=== PATIENT | female | born 1960 | race Caucasian/White ===

== ENCOUNTER 2022-07-07 10:29 | Observation (INO) | payer BC, OTHER ==
[2022-07-07] MEDS ORDERED: SODIUM CHLORIDE 0.9% 500 ML 500 ML IV STA (10:34)
--- NOTE | 2022-07-07 10:40 | ED ---
General Adult HPI - General Chief complaint: Chest Pain Stated complaint: Cardiac Time Seen by Provider: 07/07/22 10:29 Source: patient, EMS, RN notes reviewed, old records reviewed Mode of arrival: EMS Limitations: no limitations - History of Present Illness Initial comments: This is a 63-year-old female who is brought in by EMS. EMS stated the patient was in SVT they tried 6 of adenosine and then 12 of adenosine and were unable to convert the patient. Patient was then cardioverted and the patient converted to a sinus rhythm. Patient states she has no cardiac history. Patient states she takes no medications for any reason. Patient denies any recent fever chills. Patient states while at work he was in a dispute with another coworker and she wonders if that set her off. Patient denies any drug use. Patient denies alcohol use. Patient denies any thyroid issues. Patient states when the symptoms occurred at about 9:30 she was short of breath and feeling lightheaded. EMS stated her blood pressure was low so the emergency cardioverted here because she was not responding at all to adenosine. Patient states this has never happened to her before. - Related Data Allergies Allergy/AdvReac Type Severity Reaction Status Date / Time No Known Allergies Allergy Verified 07/07/22 10:36 Review of Systems ROS Statement: Those systems with pertinent positive or pertinent negative responses have been documented in the HPI. ROS Other: All systems not noted in ROS Statement are negative. Past Medical History Past Medical History: No Reported History History of Any Multi-Drug Resistant Organisms: None Reported Past Surgical History: No Surgical Hx Reported Past Psychological History: No Psychological Hx Reported Smoking Status: Never smoker Past Alcohol Use History: None Reported Past Drug Use History: None Reported General Exam - General Exam Comments Initial Comments: GENERAL: Patient is well-developed and well-nourished. Patient is nontoxic and well-hydr ated and is in mild distress. ENT: Neck is soft and supple. No significant lymphadenopathy is noted. Oropharynx is clear. Moist mucous membranes. Neck has full range of motion without eliciting any pain. There is no thyroid enlargement and no masses were felt. EYES: The sclera were anicteric and conjunctiva were pink and moist. Extraocular movements were intact and pupils were equal round and reactive to light. Eyelids were unremarkable. PULMONARY: Unlabored respirations. Good breath sounds bilaterally. No audible rales rhonchi or wheezing was noted. CARDIOVASCULAR: There is a regular rate and rhythm without any murmurs gallops or rubs. ABDOMEN: Soft and nontender with normal bowel sounds. SKIN: Skin is clear with no lesions or rashes and otherwise unremarkable. NEUROLOGIC: Patient is alert and oriented x3. Cranial nerves II through XII are grossly intact. Motor and sensory are also intact. Normal speech, volume and content. Symmetrical smile. MUSCULOSKELETAL: Normal extremities with adequate strength and full range of motion. No lower extremity swelling or edema. No calf tenderness. LYMPHATICS: No significant lymphadenopathy is noted PSYCHIATRIC: Normal psychiatric evaluation. Limitations: no limitations Course Vital Signs 07/07/22 07/07/22 10:30 11:11 Temperature 97.6 F Pulse Rate 90 92 Respiratory 18 18 Rate Blood Pressure 112/81 112/78 O2 Sat by Pulse 98 99 Oximetry Medical Decision Making - Medical Decision Making EMS states that [facility] bypass the patient even though was a priority 1 EKG shows sinus rhythm at 90 bpm [place] interval is 171 QRS is 103 QT interval 388 QTC is 435. Patient's EKG shows Q waves in II, III, and F aVF and slight ST segment depression in V3 and V4. Patient denies any chest pain I spoke with Dr. Trinidad about the patient he came down and saw the patient and reviewed the rhythm strip prior to the cardioversion he thought the patient might be in atrial flutter at this time. No anticoagulation is indicated at this time I spoke with sounds physician's they agreed to admit the patient admitted the patient wrote admitting orders - Lab Data Result diagrams: 07/07/22 10:36 07/07/22 10:36 Lab Results 07/07/22 07/07/22 07/07/22 Range/Units 10:36 10:36 10:36 WBC 6.3 (3.8-10.6) k/uL RBC 4.63 (3.80-5.40) m/uL Hgb 13.3 (11.4-16.0) gm/dL Hct 41.5 (34.0-46.0) % MCV 89.5 (80.0-100.0) fL MCH 28.7 (25.0-35.0) pg MCHC 32.1 (31.0-37.0) g/dL RDW 12.5 (11.5-15.5) % Plt Count 215 (150-450) k/uL MPV 8.2 Neutrophils % 78 % Lymphocytes % 14 % Monocytes % 4 % Eosinophils % 1 % Basophils % 2 % Neutrophils # 4.9 (1.3-7.7) k/uL Lymphocytes # 0.9 L (1.0-4.8) k/uL Monocytes # 0.3 (0-1.0) k/uL Eosinophils # 0.1 (0-0.7) k/uL Basophils # 0.1 (0-0.2) k/uL PT 10.6 (9.0-12.0) sec INR 1.0 (<1.2) APTT 24.4 (22.0-30.0) sec Sodium 138 (137-145) mmol/L Potassium 3.8 (3.5-5.1) mmol/L Chloride 104 (98-107) mmol/L Carbon Dioxide 22 (22-30) mmol/L Anion Gap 12 mmol/L BUN 18 H (7-17) mg/dL Creatinine 0.99 (0.52-1.04) mg/dL Est GFR (CKD-EPI)AfAm 72 (>60 ml/min/1.73 sqM) Est GFR (CKD-EPI)NonAf 63 (>60 ml/min/1.73 sqM) Glucose 140 H (74-99) mg/dL Calcium 9.3 (8.4-10.2) mg/dL Magnesium 1.8 (1.6-2.3) mg/dL Total Bilirubin 0.7 (0.2-1.3) mg/dL AST 47 H (14-36) U/L ALT 36 H (4-34) U/L Alkaline Phosphatase 96 (38-126) U/L Troponin I (0.000-0.034) ng/mL Total Protein 6.3 (6.3-8.2) g/dL Albumin 4.1 (3.5-5.0) g/dL TSH 2.750 (0.465-4.680) mIU/L 07/07/22 Range/Units 10:36 WBC (3.8-10.6) k/uL RBC (3.80-5.40) m/uL Hgb (11.4-16.0) gm/dL Hct (34.0-46.0) % MCV (80.0-100.0) fL MCH (25.0-35.0) pg MCHC (31.0-37.0) g/dL RDW (11.5-15.5) % Plt Count (150-450) k/uL MPV Neutrophils % % Lymphocytes % % Monocytes % % Eosinophils % % Basophils % % Neutrophils # (1.3-7.7) k/uL Lymphocytes # (1.0-4.8) k/uL Monocytes # (0-1.0) k/uL Eosinophils # (0-0.7) k/uL Basophils # (0-0.2) k/uL PT (9.0-12.0) sec INR (<1.2) APTT (22.0-30.0) sec Sodium (137-145) mmol/L Potassium (3.5-5.1) mmol/L Chloride (98-107) mmol/L Carbon Dioxide (22-30) mmol/L Anion Gap mmol/L BUN (7-17) mg/dL Creatinine (0.52-1.04) mg/dL Est GFR (CKD-EPI)AfAm (>60 ml/min/1.73 sqM) Est GFR (CKD-EPI)NonAf (>60 ml/min/1.73 sqM) Glucose (74-99) mg/dL Calcium (8.4-10.2) mg/dL Magnesium (1.6-2.3) mg/dL Total Bilirubin (0.2-1.3) mg/dL AST (14-36) U/L ALT (4-34) U/L Alkaline Phosphatase (38-126) U/L Troponin I 0.014 (0.000-0.034) ng/mL Total Protein (6.3-8.2) g/dL Albumin (3.5-5.0) g/dL TSH (0.465-4.680) mIU/L Disposition Clinical Impression: Atrial flutter with rapid ventricular response Disposition: ADMITTED IP TO THIS HOSP Referrals: None,Stated [Primary Care Provider] - 1-2 days Time of Disposition: 12:03
[2022-07-07 10:45] LABS: Basophils # (A) 0.1 k/uL (0-0.2); Basophils % (A) 2 %; Eosinophils # (A) 0.1 k/uL (0-0.7); Eosinophils % (A) 1 %; HCT 41.5 % (34.0-46.0); HGB 13.3 gm/dL (11.4-16.0); Lymphocytes # (A) 0.9 k/uL (1.0-4.8); Lymphocytes % (A) 14 %; MCH 28.7 pg (25.0-35.0); MCHC 32.1 g/dL (31.0-37.0); MCV 89.5 fL (80.0-100.0); Mean Platelet Volume 8.2; Monocytes # (A) 0.3 k/uL (0-1.0); Monocytes % (A) 4 %; Neutrophils # (A) 4.9 k/uL (1.3-7.7); Neutrophils % (A) 78 %; Platelet Count 215 k/uL (150-450); RBC 4.63 m/uL (3.80-5.40); RDW 12.5 % (11.5-15.5); WBC 6.3 k/uL (3.8-10.6)
[2022-07-07 10:53] LABS: Partial Thromboplastin Time 24.4 sec (22.0-30.0); Prothrombin Time 10.6 sec (9.0-12.0)
[2022-07-07 11:18] LABS: Albumin 4.1 g/dL (3.5-5.0); Calcium 9.3 mg/dL (8.4-10.2); Magnesium 1.8 mg/dL (1.6-2.3); Potassium 3.8 mmol/L (3.5-5.1); Total Bilirubin 0.7 mg/dL (0.2-1.3); Total Protein 6.3 g/dL (6.3-8.2)
--- NOTE | 2022-07-07 11:25 | XR ---
EXAMINATION TYPE: XR chest 2V DATE OF EXAM: 07/07/2022 11:11 AM COMPARISON: None TECHNIQUE: XR chest 2V Frontal and lateral views of the chest. CLINICAL INDICATION:Female, 61 years old with history of dysrhythmia; FINDINGS: Lungs/Pleura: There is no evidence of pleural effusion, focal consolidation, or pneumothorax. Pulmonary vascularity: Unremarkable. Heart/mediastinum: Cardiomediastinal silhouette is enlarged and stable. Musculoskeletal: Degenerative changes of the shoulder joints. IMPRESSION: No acute cardiopulmonary disease/process.
[2022-07-07] MEDS ORDERED: NITROGLYCERIN SL TABS 0.4 MG TAB SUBLINGUAL PRN (12:04)
--- NOTE | 2022-07-07 13:03 | P.CRDCN ---
History of Present Illness Consult date: 07/07/22 History of present illness: HISTORY OF PRESENT ILLNESS: This is a 61 year old female who denies any significant past medical history. 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 We have been asked to see the patient in consultation for aflutter with RVR. Patient examined at the bedside. Patient reports she has been under a lot of stress at work lately. She reports she went into work today and began to feel nauseous and dizzy. She reports having palpitations. EMS was called and the patient was found to be tachycardic in which they thought was SVT. Patient received 6 mg of adenosine followed by 12 mg of adenosine. Per EMS, the patient became hypotensive so she was cardioverted in route to the hospital. Bedside telemetry reveals sinus mechanism. The patient denies any chest pain or pressure. She denies shortness of breath. She states that she has felt dizzy and has had palpitations in the past when she feels nauseous or is throwing up. She reports that she is a nonsmoker. She reports drinking coffee just in the morning. She reports occasional alcohol use. She denies any drug use including marijuana. * Telemetry tracings from EMS reveal atrial tachycardia versus 2:1 atrial flutter * Chest xray negative for acute process * Laboratory data: WBC 6.3. Hemoglobin 13.3. Platelet count 215. Sodium 138. Potassium 3.8. BUN 18. Creatinine 0.99. AST 47. ALT 36. Troponin negative 1. TSH 2.750. * Current home cardiac medications include none REVIEW OF SYSTEMS: At the time of my exam: CONSTITUTIONAL: Denies fever or chills. HEENT: Denies blurred vision, vision changes, or eye pain. Denies hemoptysis CARDIOVASCULAR: Denies chest pain. Denies orthopnea. Denies PND. Denies palpita tions RESPIRATORY: Denies shortness of breath. GASTROINTESTINAL: Denies abdominal pain. Denies nausea or vomiting. HEMATOLOGIC: Denies bleeding disorders. GENITOURINARY: Denies any blood in urine. SKIN: Denies pruitis. Denies rash. PHYSICAL EXAM: VITAL SIGNS: Reviewed. GENERAL: Well-developed in no acute distress. HEENT: Head is normocephalic. Pupils are equal, round. Sclerae anicteric. Mucous membranes of the mouth are moist. Neck supple. No JVD or thyromegaly LUNGS: Respirations even and unlabored. Lungs essentially clear to auscultation bilaterally. HEART: Regular rate and rhythm. S1 and S2 heard. ABDOMEN: Soft. Nondistended. Nontender. EXTREMITIES: Normal range of motion. No clubbing or cyanosis. Peripheral pulses intact. No lower extremity edema NEUROLOGIC: Awake and alert. Oriented x 3. ASSESSMENT: Symptoms of dizziness, lightheadedness, nausea, and palpitations Atrial tachycardia versus 2:1 atrial flutter PLAN: Obtain 2-D echo to assess cardiac structure and function TSH checked and within normal limits Continue telemetry monitoring No anticoagulation needed at this time No beta jefry therapy at this time per Dr. Trinidad Further recommendations pending patient's course Nurse practitioner note has been reviewed by physician. Signing provider agrees with the documented findings, assessment, and plan of care. Past Medical History Past Medical History: No Reported History History of Any Multi-Drug Resistant Organisms: None Reported Past Surgical History: No Surgical Hx Reported Past Psychological History: No Psychological Hx Reported Smoking Status: Never smoker Past Alcohol Use History: None Reported Past Drug Use History: None Reported Medications and Allergies Home Medications Medication Instructions Recorded Confirmed Type No Known Home Medications 07/07/22 07/07/22 History Allergies Allergy/AdvReac Type Severity Reaction Status Date / Time No Known Allergies Allergy Verified 07/07/22 12:37 Physical Exam Vitals: Vital Signs Temp Pulse Resp BP Pulse Ox 07/07/22 11:11 92 18 112/78 99 07/07/22 10:30 97.6 F 90 18 112/81 98 Intake and Output 07/06/22 07/07/22 07/07/22 22:59 06:59 14:59 Other: Weight 54.431 kg Results 07/07/22 10:36 07/07/22 10:36 Cardiac Enzymes 07/07/22 07/07/22 Range/Units 10:36 10:36 AST 47 H (14-36) U/L Troponin I 0.014 (0.000-0.034) ng/mL Coagulation 07/07/22 Range/Units 10:36 PT 10.6 (9.0-12.0) sec APTT 24.4 (22.0-30.0) sec CBC 07/07/22 Range/Units 10:36 WBC 6.3 (3.8-10.6) k/uL RBC 4.63 (3.80-5.40) m/uL Hgb 13.3 (11.4-16.0) gm/dL Hct 41.5 (34.0-46.0) % Plt Count 215 (150-450) k/uL Comprehensive Metabolic Panel 07/07/22 Range/Units 10:36 Sodium 138 (137-145) mmol/L Potassium 3.8 (3.5-5.1) mmol/L Chloride 104 (98-107) mmol/L Carbon Dioxide 22 (22-30) mmol/L BUN 18 H (7-17) mg/dL Creatinine 0.99 (0.52-1.04) mg/dL Glucose 140 H (74-99) mg/dL Calcium 9.3 (8.4-10.2) mg/dL AST 47 H (14-36) U/L ALT 36 H (4-34) U/L Alkaline Phosphatase 96 (38-126) U/L Total Protein 6.3 (6.3-8.2) g/dL Albumin 4.1 (3.5-5.0) g/dL Current Medications Generic Name Dose Route Start Last Admin Trade Name Freq PRN Reason Stop Dose Admin Nitroglycerin 0.4 mg 07/07/22 12:04 Nitroglycerin Sl Tabs 0.4 Mg Tab SUBLINGUAL Q5M PRN Chest Pain Intake and Output 07/06/22 07/07/22 07/07/22 22:59 06:59 14:59 Other: Weight 54.431 kg Patient Weight 07/08/22 06:59 Weight 54.431 kg 07/07/22 10:36 07/07/22 10:36
[2022-07-07 13:28] LABS: Amphetamine Screen,Urine Not Detected (NotDetected); Barbiturate Screen,Urine Not Detected (NotDetected); Benzodiazepines Screen,Urine Not Detected (NotDetected); Cocaine Screen,Urine Not Detected (NotDetected); Methadone Screen, Urine Not Detected (NotDetected); Opiate Screen,Urine Not Detected (NotDetected); Oxycodone Screen, Urine Not Detected (NotDetected); Phencyclidine Screen,Urine Not Detected (NotDetected); Tricyclic Antidepressant,Urine Not Detected (NotDetected); Urn Cannabinoid Scrn Not Detected (NotDetected)
--- NOTE | 2022-07-07 15:41 | P.HPIM ---
History of Present Illness H&P Date: 07/07/22 Chief Complaint: Presyncope Patient is a 61-year-old female with no past medical history who was brought in by EMS for SVT. Patient was at work today. She stated that when she went into work she was stressed out because of another coworker who was being rude to her. She states that today at work she felt as if she is going to pass out and was having some chest discomfort as well as numbness and tingling in her fingers. So her boss called 911. When EMS arrived they found her to be in SVT and also hypotensive. Patient received adenosine twice which did not convert her. She was then cardioverted and was then in normal sinus rhythm. She has been in norm al sinus rhythm since then. Patient currently denying any symptoms. Review of Systems 10 ROS reviewed and are negative except as noted in HPI Past Medical History Past Medical History: No Reported History History of Any Multi-Drug Resistant Organisms: None Reported Past Surgical History: No Surgical Hx Reported Past Psychological History: No Psychological Hx Reported Smoking Status: Never smoker Past Alcohol Use History: None Reported Past Drug Use History: None Reported Medications and Allergies Home Medications Medication Instructions Recorded Confirmed Type No Known Home Medications 07/07/22 07/07/22 History Allergies Allergy/AdvReac Type Severity Reaction Status Date / Time No Known Allergies Allergy Verified 07/07/22 12:37 Physical Exam Osteopathic Statement: *. No significant issues noted on an osteopathic structural exam other than those noted in the History and Physical/Consult. Vitals: Vital Signs Temp Pulse Resp BP Pulse Ox 07/07/22 13:00 80 18 149/91 96 07/07/22 11:11 92 18 112/78 99 07/07/22 10:30 97.6 F 90 18 112/81 98 Intake and Output 07/07/22 07/07/22 07/07/22 06:59 14:59 22:59 Other: Weight 54.431 kg General: [Alert and oriented, well nourished, no acute distress]. Eye: [PERRL, EOMI, normal conjunctiva]. HENT: [Normocephalic, clear tympanic membranes, normal hearing, moist oral mucosa, no scleral icterus, no sinus tenderness]. Neck: [Supple, non-tender, no carotid bruits, no JVD, no lymphadenopathy]. Lungs: [Clear to auscultation and percussion, non-labored respiration]. Heart: [Normal rate, regular rhythm, no murmur, gallop or edema]. Abdomen: [Soft, non-tender, non-distended, normal bowel sounds, no masses]. Musculoskeletal: [Normal range of motion and strength, no tenderness or swelling]. Skin: [Skin is warm, dry and pink, no rashes or lesions]. Neurologic: [Awake, alert, and oriented X3, CN II-XII intact]. Psychiatric: [Cooperative, appropriate mood and affect]. Results CBC & Chem 7: 07/07/22 10:36 07/07/22 10:36 Labs: Abnormal Lab Results - Last 24 Hours (Table) 07/07/22 07/07/22 Range/Units 10:36 10:36 Lymphocytes # 0.9 L (1.0-4.8) k/uL BUN 18 H (7-17) mg/dL Glucose 140 H (74-99) mg/dL AST 47 H (14-36) U/L ALT 36 H (4-34) U/L Assessment and Plan Assessment: SVT Presyncope secondary to the above Check 2-D echocardiogram TSH within normal limits Telemetry Cardiology consult CODE STATUS:full code DVT prophylaxis: mechanical Discussed with: Patient, ER, rn Anticipated length of stay < than [address]: home A total of 50 minutes was spent on the care of this complex patient more than 50% of the time was spent in counseling and care coordination.
--- NOTE | 2022-07-07 17:36 | CA ---
Transthoracic Echo Report Name: Pearl Pa Age: 61 Gender: F : 1960 Exam Date: 07/07/2022 13:54 Exam Location: [facility] Ht (in): 60 Wt (lb): 224 Ordering Physician: German Davey MD Attending/Referring Phys: Restrike Hammer Operator Mihaela Morillo, ANDER Procedure CPT: Indications: Chest Pain Cardiac Hx: Technical Quality: Good Contrast 1: Total Dose (mL): Contrast 2: Total Dose (mL): MEASUREMENTS (Male / Female) Normal Values 2D ECHO LV Diastolic Diameter PLAX 4.3 cm 4.2 - 5.9 / 3.9 - 5.3 cm LV Systolic Diameter PLAX 3.2 cm IVS Diastolic Thickness 0.8 cm 0.6 - 1.0 / 0.6 - 0.9 cm LVPW Diastolic Thickness 1.1 cm 0.6 - 1.0 / 0.6 - 0.9 cm LV Relative Wall Thickness 0.4 LA Volume 49.7 cm??? 18 - 58 / 22 - 52 cm??? M-MODE Aortic Root Diameter MM 2.8 cm LA Systolic Diameter MM 3.2 cm LA Ao Ratio MM 1.1 MV E Point Septal Separation 0.1 cm DOPPLER MV Area PHT 4.1 cm??? Mitral E Point Velocity 48.6 cm/s Mitral A Point Velocity 44.9 cm/s Mitral E to A Ratio 1.1 MV Deceleration Time 184.4 ms MV E' Velocity 5.7 cm/s Mitral E to MV E' Ratio 8.5 TR Peak Velocity 249.2 cm/s TR Peak Gradient 24.9 mmHg Right Ventricular Systolic Press 28.8 mmHg FINDINGS Left Ventricle Left ventricular ejection fraction is estimated at 50-55%. Right Ventricle Normal right ventricular size and function. Right ventricular systolic pressure within normal limits. Right Atrium Normal right atrial size. Left Atrium Normal left atrial size. Mitral Valve Mitral valve thickened. Mild mitral regurgitation. Aortic Valve Trileaflet aortic valve. Tricuspid Valve Structurally normal tricuspid valve. Pulmonic Valve Structurally normal pulmonic valve. Pericardium Normal pericardium. Aorta Normal size aortic root and proximal ascending aorta. CONCLUSIONS Normal LV systolic function Mild mitral regurgitation Prominent Chiari network in the right atrium Previewed by: Dr. Stiven Mckoy MD (Electronically Signed) Final Date: 07 July 2022 17:35
[2022-07-08 08:16] VITALS: RESP 16
[2022-07-08] MEDS ORDERED: ASPIRIN 325 MG TAB PO SCH (09:00)
[2022-07-08 11:11] LABS: HDL Cholesterol 60.3 mg/dL (40.00-60.00); Triglycerides 49.6 mg/dL (0.00-149.00)
[2022-07-08 11:25] LABS: Chol/HDL Ratio 2.32 Ratio; LDL Cholesterol,Direct Reflex 72.3 mg/dL (0.00-129.00)
[2022-07-08 11:58] VITALS: BP 112/72; PULSE 86; TEMP 97.6
[2022-07-08] MEDS ORDERED: DILTIAZEM CD 120 MG CAP.ER.24H PO SCH (12:30)
--- NOTE | 2022-07-08 12:59 | P.PN ---
Subjective Progress Note Date: 07/08/22 HISTORY OF PRESENT ILLNESS: This is a 61 year old female who denies any significant past medical history. 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 We have been asked to see the p reinaldo in consultation for aflutter with RVR. Patient examined at the bedside. Patient reports she has been under a lot of stress at work lately. She reports she went into work today and began to feel nauseous and dizzy. She reports having palpitations. EMS was called and the patient was found to be tachycardic in which they thought was SVT. Patient received 6 mg of adenosine followed by 12 mg of adenosine. Per EMS, the patient became hypotensive so she was cardioverted in route to the hospital. Bedside telemetry reveals sinus mechanism. The patient denies any chest pain or pressure. She denies shortness of breath. She states that she has felt dizzy and has had palpitations in the past when she feels nauseous or is throwing up. She reports that she is a nonsmoker. She reports drinking coffee just in the morning. She reports occasional alcohol use. She denies any drug use including marijuana. * Telemetry tracings from EMS reveal atrial tachycardia versus 2:1 atrial flutter * Chest xray negative for acute process * Laboratory data: WBC 6.3. Hemoglobin 13.3. Platelet count 215. Sodium 138. Potassium 3.8. BUN 18. Creatinine 0.99. AST 47. ALT 36. Troponin negative 1. TSH 2.750. * Current home cardiac medications include none 07/08/2022 Patient examined this morning at the bedside. Patient denies chest pain or pressure. She denies shortness of breath. Telemetry reveals sinus mechanism. Patient's second troponin came back elevated at 0.327. Echocardiogram completed revealing ejection fraction 50-55%. Patient underwent stress echocardiogram today which was negative for ischemia. PHYSICAL EXAM: VITAL SIGNS: Reviewed. GENERAL: Well-developed in no acute distress. HEENT: Head is normocephalic. Pupils are equal, round. Sclerae anicteric. Mucous membranes of the mouth are moist. Neck supple. No JVD or thyromegaly LUNGS: Respirations even and unlabored. Lungs essentially clear to auscultation bilaterally. HEART: Regular rate and rhythm. S1 and S2 heard. ABDOMEN: Soft. Nondistended. Nontender. EXTREMITIES: Normal range of motion. No clubbing or cyanosis. Peripheral pulses intact. No lower extremity edema NEUROLOGIC: Awake and alert. Oriented x 3. ASSESSMENT: Symptoms of dizziness, lightheadedness, nausea, and palpitations Atrial tachycardia versus 2:1 atrial flutter Abnormal troponin, likely secondary to cardioversion, acute coronary syndrome ruled out PLAN: Begin Cardizem CD 120 mg daily Patient is currently stable for discharge home today from a cardiac standpoint She is to follow up on an outpatient basis Nurse practitioner note has been reviewed by physician. Signing provider agrees with the documented findings, assessment, and plan of care. Objective - Vital Signs Vital signs: Vital Signs Temp 97.6 F 07/08/22 11:55 Pulse 86 07/08/22 11:55 Resp 16 07/08/22 11:55 BP 112/72 07/08/22 11:55 Pulse Ox 98 07/08/22 11:55 FiO2 Intake & Output 07/07/22 07/08/22 07/08/22 18:59 06:59 18:59 Intake Total 5 Balance 5 Weight 54.431 kg 54.431 kg Intake: IV 5 Invasive Line 1 5 Other: Voiding Method Toilet # Voids 1 2 - Labs CBC & Chem 7: 07/07/22 10:36 07/07/22 10:36 Labs: Abnormal Lab Results - Last 24 Hours (Table) 07/07/22 07/08/22 Range/Units 16:13 08:08 Troponin I 0.327 H* (0.000-0.034) ng/mL HDL Cholesterol 60.30 H (40.00-60.00) mg/dL
--- NOTE | 2022-07-08 13:08 | P.DS ---
Providers Date of admission: 07/07/22 12:05 Expected date of discharge: 07/08/22 Attending physician: Waldo Patel MD Consults: 07/07/22 12:04 Consult Physician Urgent Consulting Provider: [facility] Consult Reason/Comments: Atrial flutter with rapid ventricular response Do you want consulting provider notified?: Already Contacted Primary care physician: Stated None Hospital Course: Discharge Diagnosis: SVT Presyncope secondary to the above Hospital Course: Patient is a 61-year-old female with no past medical history who was brought in by EMS for SVT. When EMS arrived she was cardioverted to normal sinus rhythm. She has been in normal sinus rhythm since then. During hospital course patient did have an elevated troponin. Cardiology wanted to rule out ACS. So patient had a stress test that was negative for reversible ischemia. She also had an echocardiogram that was unremarkable. She was then deemed stable for discharge by cardiology. Cardiology recommended to start Cardizem 120 mg daily. Patient surgery follow cardiology outpatient. Patient seen and examined at bedside.[] Vital signs reviewed and stable. General: [non toxic], [no distress], [appears at stated age] Derm: [warm], [dry] Head: [atraumatic], [normocephalic], [symmetric] Eyes: [EOMI], [no lid lag], [anicteric sclera] Mouth: [no lip lesion], [mucus membranes moist] Cardiovascular: [S1S2 reg], [no murmur], [positive posterior tibial pulse bilateral], Lungs: [CTA bilateral], [no rhonchi, no rales] , [no accessory muscle use] Abdominal: [soft], [ nontender to palpation], [no guarding], [no appreciable organomegaly] Ext: [no gross muscle atrophy], [no edema], [no contractures] Neuro: [ CN II-XI grossly intact], [no focal neuro deficits] Psych: [Alert], [oriented], [appropriate affect] A total of [33] minutes of time were spent preparing this complex discharge summary . Patient Condition at Discharge: Fair Plan - Discharge Summary Discharge Rx Participant: No New Discharge Prescriptions: New Diltiazem Cd [Cardizem CD] 120 mg PO DAILY #30 cap Discharge Medication List Diltiazem Cd [Cardizem CD] 120 mg PO DAILY #30 cap 07/08/22 [Rx] Follow up Appointment(s)/Referral(s): Desean Trinidad MD [STAFF PHYSICIAN] - 2 Weeks (Offices will call you with an appointment date and time for follow up.) None,Stated [Primary Care Provider] - 1-2 days Patient Instructions/Handouts: Adenosine (By injection), Supraventricular Tachycardia (DC), Cardioversion (DC) Discharge Disposition: HOME SELF-CARE
--- NOTE | 2022-07-08 13:13 | CA ---
Stress Echo Report [facility] Age: 62 Gender: F : 1960 Exam Date: 07/08/2022 11:02 Exam Location: [facility] Ht (in): 66 Wt (lb): 120 Ordering Physician: Bibi Cee Referring Physician: [id number] See Wheeler: Lester Hobbs Technologist Procedure CPT: Indication: CP ICD-9 Codes: Rhythm: Patient History: Cardiac Medications: NONE Medications in past 24 hours: NONE Contrast: Stress Results Protocol: Zackery Total dose(mL): Exercise Duration (min:sec): 9:[address] Depression (mm): Angina Score: Cummins Score: METS: 10.3 Resting HR: 78 Resting BP: 124 / 83 Peak HR: 149 Peak BP: 184 / 95 Max Predicted HR: 160 93 % Max Predicted HR Target HR: 136 Double Product: [id number] Stress Summary: BP Response: Reason for Termination: Reached target heart rate or work-load Cardiac Symptoms: NO SYMPTOMS ECG Analysis Resting ECG: Normal sinus rhythm normal axis normal intervals Stress ECG: Patient exercised on Zackery protocol for a total of 9 minutes achieving 10 met 85% of predicted maximal heart rate without chest pain or diagnostic ST segment depression Arrhythmia: 3 PVCs are noted Echo Analysis Resting Echo: Normal left ventricle a size wall motion systolic function Peak Echo Analysis: Normal hyperdynamic response of all segments of myocardium noted MEASUREMENTS (Male/Female) Normal Values CONCLUSIONS Good exercise tolerance Negative stress test by EKG criteria Negative stress echo Dr. Stiven Mckoy MD (Electronically Signed) Final Date: 08 July 2022 13:12
== END 2022-07-08 14:25 | disposition home or self-care (01) ==
LOC: EDBD → EC 10:29 → 6NMEDSUR 12:05 → 3SCARD 12:35
PROVIDERS: ADMIT Internal Medicine; ATTEND Internal Medicine
DX: I48.92 Unspecified atrial flutter (principal); I51.7 Cardiomegaly; I34.0 Nonrheumatic mitral (valve) insufficiency; I49.3 Ventricular premature depolarization; I95.9 Hypotension, unspecified
CPT/HCPCS: 96360; 96361; 99285; 36415; 93306; 93351; 80061; 80053; 83735; 84443; 84484; 85025; 85610; 85730; 83721; 80306; 71046; G0378 ×3; 93005